=== PATIENT | male | born 1960 | race Caucasian/White ===

== ENCOUNTER 2016-11-23 11:12 | Emergency (ER) | payer OTHER ==
[~2016-11-23] VITALS: Ht 172.7 cm; Wt 56.2 kg
[2016-11-23] MEDS ORDERED: MOBIC15 MG PO (13:35)
[2016-11-23] MEDS ORDERED: NORCO 5-325 TA1 EACH PO (13:35)
[2016-11-23 14:01] VITALS: BP 101/64
== END 2016-11-23 14:01 | disposition home or self-care (01) ==
LOC: ER 11:12
DX: M79.604 Pain in right leg (principal); M79.605 Pain in left leg; F17.210 Nicotine dependence, cigarettes, uncomplicated; F10.99 Alcohol use, unspecified with unspecified alcohol-induced disorder; Z88.5 Allergy status to narcotic agent

== ENCOUNTER 2016-12-17 12:00 | Emergency (ER) | payer OTHER ==
[~2016-12-17] VITALS: Ht 172.7 cm; Wt 56.7 kg
[~2016-12-17 12:00] MED LIST: MOBIC15 MG PO; NORCO 5-325 TA1 EACH PO
[2016-12-17] MEDS ORDERED: PREDNISONE 10 M10 MG PO (13:38)
[2016-12-17] MEDS ORDERED: NORFLEX100 MG PO (13:38)
[2016-12-17 13:49] VITALS: BP 137/80
== END 2016-12-17 13:38 | disposition home or self-care (01) ==
LOC: ER 12:00
DX: M54.31 Sciatica, right side (principal); F17.210 Nicotine dependence, cigarettes, uncomplicated; F10.99 Alcohol use, unspecified with unspecified alcohol-induced disorder; Z88.6 Allergy status to analgesic agent

== ENCOUNTER 2016-12-21 14:28 | Emergency (ER) | payer OTHER ==
[~2016-12-21] VITALS: Ht 172.7 cm; Wt 56.7 kg
--- NOTE | ~2016-12-21 | EKG ---
[place] [address] [facility] [place] [address] ELECTROCARDIOGRAM REPORT Name: ALEX GUY Room #: DEP JOSE L Newell#: [id number] Admission: 12/21/16 Attend Phys: Discharge: 12/21/16 Date of : 58 Report #: [id number] THIS REPORT FOR: //name// [facility] ED Test Date: 2016-12-21 Test Time: 17:27:33 Pat Name: ALEX GUY Department: Room: Gender: Nurse Prn: BE : 1960 Requested By: Ant Ngo Order Number: [id number] MD: Scott Salas Measurements Intervals [place] Rate: 93 P: 92 AL: 159 QRS: 84 QRSD: 67 T: 74 QT: 387 QTc: 482 Interpretive Statements Sinus rhythm Anteroseptal infarct, age indeterminate No previous ECG available for comparison Electronically Signed On 12-23-2016 7:18:57 CDT by Scott Salas [email or web address] <ELECTRONICALLY SIGNED> By: Scott Salas MD, [facility] 12/23/16 0718 1727 1727 Scott Salas MD, FACC /EPI
[~2016-12-21 14:28] MED LIST changes: +NORFLEX100 MG PO; +PREDNISONE 10 M10 MG PO
[2016-12-21 16:33] LABS: ABSOLUTE NEUTROPHILS 12.1 thou/uL (1.4-8.2); BASOPHILS 0.4 % (0.0-2.0); EOSINOPHILS 0.2 % (0.0-3.0); HEMATOCRIT 28.6 % (42.0-52.0); HEMOGLOBIN 9.6 gm/dL (14.0-18.0); MCH 26.7 pg (26.0-34.0); MCHC 33.7 g/dL (28.0-37.0); MONOCYTES 7.1 % (1.0-8.0); PLATELET COUNT 778 thou/uL (150-400); POLYS 82.3 % (36.0-66.0); RBC 3.61 mil/uL (4.50-6.00); RDW 17.5 % (10.5-14.5); WBC 14.7 thou/uL (4.0-11.0)
[2016-12-21 16:34] LABS: MANUAL DIFF NO
[2016-12-21 16:55] LABS: ALKALINE PHOSPHATASE 78 U/L (46-116); ANION GAP 10 mmol/L (7-16); BUN 13 mg/dL (7-18); CALCIUM 10.7 mg/dL (8.5-10.1); CHLORIDE 90 mmol/L (98-107); CO2 32 mmol/L (21-32); CREATININE 0.7 mg/dL (0.7-1.3); DIRECT BILIRUBIN < 0.1 mg/dL (<0.1-0.3); GLUCOSE 103 mg/dL (74-106); SGOT 32 U/L (15-37); SGPT 22 U/L (30-65); SODIUM 132 mmol/L (136-145); TOTAL BILIRUBIN 0.4 mg/dL (<0.1-1.0); TOTAL PROTEIN 7.9 g/dL (6.4-8.2)
[2016-12-21 16:57] LABS: POTASSIUM 2.7 mmol/L (3.5-5.1)
[2016-12-21 19:24] VITALS: BP 134/80
== END 2016-12-21 19:40 | disposition short-term general hospital (02) ==
LOC: ER 14:28
PROVIDERS: Nurse Practitioner
DX: E87.6 Hypokalemia (principal); M54.5 Low back pain; C79.9 Secondary malignant neoplasm of unspecified site; F17.210 Nicotine dependence, cigarettes, uncomplicated; F10.99 Alcohol use, unspecified with unspecified alcohol-induced disorder; Z88.5 Allergy status to narcotic agent

== ENCOUNTER 2017-01-11 11:02 | Inpatient (IN) | payer OTHER | END 2017-01-23 09:40 | disposition hospice, inpatient (51) | DRG 469 | LOC: ER 11:02 → EROBS 12:53 → 4N 14:20 | PROC: 0SRS0J9 Replacement of Left Hip Joint, Femoral Surface with Synthetic Substitute, Cemented, Open Approach (ICD-10-PCS; principal; 2017-01-14) | DX: M84.552A Pathological fracture in neoplastic disease, left femur, initial encounter for fracture (principal); G93.40 Encephalopathy, unspecified; E43 Unspecified severe protein-calorie malnutrition; I82.C19 Acute embolism and thrombosis of unspecified internal jugular vein; E46 Unspecified protein-calorie malnutrition; E87.1 Hypo-osmolality and hyponatremia; Z68.1 Body mass index [BMI] 19.9 or less, adult; C34.92 Malignant neoplasm of unspecified part of left bronchus or lung; F17.210 Nicotine dependence, cigarettes, uncomplicated; E87.6 Hypokalemia; E83.42 Hypomagnesemia; R19.7 Diarrhea, unspecified; D50.9 Iron deficiency anemia, unspecified; F41.9 Anxiety disorder, unspecified; Z79.899 Other long term (current) drug therapy; Z88.6 Allergy status to analgesic agent ==